=== PATIENT | male | born 1955 | race Caucasian/White ===

== ENCOUNTER → 2016-09-18 | Outpatient (CLI) | payer OTHER | LOC: FIMAGING 08:32 | PROVIDERS: ATTEND Orthopaedic Surgery | DX: M86.271 Subacute osteomyelitis, right ankle and foot (principal) | CPT/HCPCS: 78315; 78805; A9503; A9570 ==

== ENCOUNTER 2018-04-10 10:11 | Inpatient (IN) | payer OTHER ==
[2018-04-10] MEDS ORDERED: ONDANSETRON 4 MG/2 ML VIAL IVP ONE (11:24)
--- NOTE | 2018-04-10 11:27 | EDPHY ---
H & P Stated Complaint: High b/p, N/V Time Seen by Provider: 04/10/18 11:11 HPI/ROS: CHIEF COMPLAINT: Abdominal pain, vomiting HISTORY OF PRESENT ILLNESS: 63-year-old male presents with abdominal pain and vomiting. Onset of moderate generalized abdominal pain 2 days ago. Associated with vomiting and lack of appetite. The pain is 4/10 when supine, increases to 7/10 when upright. Mainly laying in bed for the past 2 days. No oral intake for 2 days. Associated with generalized weakness and urinary frequency without dysuria or hematuria. No dizziness or fever. No prior similar symptoms. No prior abdominal surgery. REVIEW OF SYSTEMS: complete 10 point ROS reviewed and is negative except for the noted elements in the HPI Source: Patient - Personal History Current Tetanus/Diphtheria Vaccine: Yes - Medical/Surgical History Hx Asthma: No Hx Chronic Respiratory Disease: No Hx Diabetes: No Hx Cardiac Disease: No Hx Renal Disease: No Hx Cirrhosis: No Hx Alcoholism: No Other PMH: HTN - Social History Smoking Status: Never smoked Alcohol Use: Occasionally Drug Use: None - Physical Exam Exam: General Appearance: Alert, pleasant Eyes: Pupils equal and round, no conjunctival pallor or injection ENT, Mouth: Mucous membranes moist Neck: Normal inspection Respiratory: Lungs are clear to auscultation Cardiovascular: Regular rate and rhythm Gastrointestinal: Abdomen is soft, diffuse tenderness with guarding, especially in the right lower quadrant and suprapubic area Neurological: A&O, nonfocal, normal gait Skin: Warm and dry Extremities: Normal inspection Psychiatric: Mood and affect normal Constitutional: Initial Vital Signs Temperature (C) 36.6 C 04/10/18 10:28 Heart Rate 98 04/10/18 10:28 Respiratory Rate 18 04/10/18 10:28 Blood Pressure 154/111 H 04/10/18 10:28 O2 Sat (%) 91 L 04/10/18 10:28 O2 Delivery Mode Room Air Allergies/Adverse Reactions: No Known Allergies Allergy (Unverified 04/10/18 10:31) Home Medications: Medication Instructions Recorded Captopril 50 mg PO TID 04/10/18 Herbals/Supplements -Info Only 1 ea PO DAILY 04/10/18 Multivitamins [Multivitamin (*)] 1 each PO DAILY 04/10/18 Naproxen Sodium [Aleve 220 MG (*)] 220 mg PO BID PRN 04/10/18 Omeprazole 20 mg PO DAILY 04/10/18 amLODIPine BESYLATE [Norvasc 10 mg 10 mg PO DAILY 04/10/18 (*)] Medical Decision Making - Diagnostics Imaging Results: Imaging Impressions Abdomen CT 04/10/18 11:24 Impression: 1. Thickening associated with the 3rd-4th portions of the duodenum with surrounding inflammation suggestive of duodenal ulcer /inflammation/infection. Secondary inflammatory process possibly from pancreatitis of the uncinate process is felt to be less likely 2. No CT evidence of appendicitis, abscess or bowel obstruction.. 3. Bilateral nephrolithiasis without obstruction. 4. Degenerative disk disease at L4-L5 with moderate spinal stenosis and neuroforaminal stenoses. Findings discussed with Melissa Briones M.D. at 12:31 hour, 04/10/2018. Abdomen Ultrasound 04/10/18 12:35 Impression: Nonobstructing nephrolithiasis of the right kidney. Otherwise, limited study without acute process by ultrasound. Findings and recommendations discussed with MELISSA BRIONES at 1357 hour, 2017. Imaging: Discussed imaging studies w/ call center assistant Radiologist ED Course/Re-evaluation: This patient presents with abdominal pain and vomiting. Abd exam concerning, given diffuse tenderness with guarding. IV normal saline 2 L, morphine and Zofran IV given. Feels better after IV morphine. Leukocytosis noted. CT scan of the abdomen/pelvis ordered and reveals duodenal ulcer versus pancreatitis. Lipase is only slightly elevated at 350, unclear if pancreatitis is actually the etiology of the discomfort; would expect higher lipase, given length/ severity of sx. Protonix 80 mg IV given for possible duodenal ulcer. A right upper quadrant ultrasound was ordered to evaluate for possible gallstones and is negative. CT scan results discussed with the patient. Denies heavy EtOH. Using NSAIDS frequently. The hospitalist service was consulted for admission. Serial abdominal exam remains unchanged x2. Differential Diagnosis: Differential diagnosis includes though it is not limited to appendicitis, cholecystitis, diverticulitis, pyelonephritis, bowel perforation, small bowel obstruction. - Data Points Laboratory Results: Laboratory Results 04/10/18 11:21 04/10/18 11:21 04/10/18 04/10/18 04/10/18 12:00 11:26 11:21 WBC RBC Hgb POC Hgb 17.7 gm/dL H gm/dL (13.7-17.5) Hct POC Hct 52 % H % (40-51) MCV MCH MCHC RDW Plt Count MPV Neut % (Auto) Lymph % (Auto) [place] % (Auto) Eos % (Auto) Baso % (Auto) Nucleat RBC Rel Count Absolute Neuts (auto) Absolute Lymphs (auto) Absolute Monos (auto) Absolute Eos (auto) Absolute Basos (auto) Absolute Nucleated RBC Immature Gran % Immature Gran # RBC/WBC/PLT Morphology Platelet Estimate PT 13.9 SEC SEC (12.0-15.0) INR 1.05 (0.83-1.16) APTT 28.3 SEC SEC (23.0-38.0) POC Sodium 141 mEq/L mEq/L (135-145) Sodium POC Potassium 3.8 mEq/L mEq/L (3.3-5.0) Potassium POC Chloride 97 mEq/L mEq/L (97-110) Chloride Carbon Dioxide Anion Gap POC BUN 14 mg/dL mg/dL (7-23) BUN Creatinine POC Creatinine 1.0 mg/dL mg/dL (0.7-1.3) Estimated GFR Glucose POC Glucose 104 mg/dL H mg/dL (70-100) Calcium Total Bilirubin Conjugated Bilirubin Unconjugated Bilirubin AST ALT Alkaline Phosphatase Total Protein Albumin Lipase H. pylori IgG Antibody NEGATIVE (NEG) 04/10/18 04/10/18 11:21 11:21 WBC 24.84 10^3/uL H 10^3/uL (3.80-9.50) RBC 5.92 10^6/uL 10^6/uL (4.40-6.38) Hgb 16.9 g/dL g/dL (13.7-17.5) POC Hgb Hct 48.8 % % (40.0-51.0) POC Hct MCV 82.4 fL fL (81.5-99.8) MCH 28.5 pg pg (27.9-34.1) MCHC 34.6 g/dL g/dL (32.4-36.7) RDW 13.1 % % (11.5-15.2) Plt Count 246 10^3/uL 10^3/uL (150-400) MPV 9.9 fL fL (8.7-11.7) Neut % (Auto) 86.5 % H % (39.3-74.2) Lymph % (Auto) 5.9 % L % (15.0-45.0) [place] % (Auto) 6.7 % % (4.5-13.0) Eos % (Auto) 0.1 % L % (0.6-7.6) Baso % (Auto) 0.3 % % (0.3-1.7) Nucleat RBC Rel Count 0.0 % % (0.0-0.2) Absolute Neuts (auto) 21.49 10^3/uL H 10^3/uL (1.70-6.50) Absolute Lymphs (auto) 1.47 10^3/uL 10^3/uL (1.00-3.00) Absolute Monos (auto) 1.66 10^3/uL H 10^3/uL (0.30-0.80) Absolute Eos (auto) 0.02 10^3/uL L 10^3/uL (0.03-0.40) Absolute Basos (auto) 0.07 10^3/uL 10^3/uL (0.02-0.10) Absolute Nucleated RBC 0.00 10^3/uL 10^3/uL (0-0.01) Immature Gran % 0.5 % % (0.0-1.1) Immature Gran # 0.12 10^3/uL H 10^3/uL (0.00-0.10) RBC/WBC/PLT Morphology TNP Platelet Estimate TNP PT INR APTT POC Sodium Sodium 138 mEq/L mEq/L (135-145) POC Potassium Potassium 4.1 mEq/L mEq/L (3.3-5.0) POC Chloride Chloride 101 mEq/L mEq/L (97-110) Carbon Dioxide 25 mEq/l mEq/l (22-31) Anion Gap 12 mEq/L mEq/L (6-14) POC BUN BUN 14 mg/dL mg/dL (7-23) Creatinine 1.0 mg/dL mg/dL (0.7-1.3) POC Creatinine Estimated GFR > 60 Glucose 98 mg/dL mg/dL (70-100) POC Glucose Calcium 9.6 mg/dL mg/dL (8.5-10.4) Total Bilirubin 1.5 mg/dL H mg/dL (0.1-1.4) Conjugated Bilirubin 0.4 mg/dL mg/dL (0.0-0.5) Unconjugated Bilirubin 1.1 mg/dL mg/dL (0.0-1.1) AST 32 IU/L IU/L (17-59) ALT 27 IU/L IU/L (21-72) Alkaline Phosphatase 116 IU/L IU/L (38-126) Total Protein 7.8 g/dL g/dL (6.3-8.2) Albumin 4.4 g/dL g/dL (3.5-5.0) Lipase 350 IU/L H IU/L (23-300) H. pylori IgG Antibody Medications Given: Hydralazine HCl (Apresoline) 5 mg IVP Q6HRS PRN PRN Reason: SBP Greater Than 160 Stop: 10/07/18 15:13 Last Admin: 04/10/18 16:10 Dose: 5 mg Potassium Chloride/Sodium Chloride (Ns W/ 20 Kcl/L) 1,000 mls @ 100 mls/hr IV CONT DAVID Stop: 10/07/18 15:14 Last Admin: 04/10/18 18:00 Dose: 1,000 mls Lisinopril (Zestril) 10 mg PO DAILY [facility] Stop: 10/07/18 15:29 Last Admin: 04/10/18 16:06 Dose: 10 mg Nystatin (Mycostatin Oral Liquid) 500,000 unit PO QID DAVID PRN Reason: Protocol Stop: 05/10/18 15:59 Last Admin: 04/10/18 16:06 Dose: 500,000 unit Oxycodone HCl (Oxycodone Ir) 5 - 10 mg PO Q3HRS PRN PRN Reason: Pain, Severe Able to Take PO Stop: 04/20/18 12:57 Last Admin: 04/10/18 14:51 Dose: 10 mg Discontinued Medications Morphine Sulfate (Morphine) 6 mg IVP EDNOW ONE Stop: 04/10/18 11:25 Last Admin: 04/10/18 11:39 Dose: 4 mg Ondansetron HCl (Zofran) 4 mg IVP EDNOW ONE Stop: 04/10/18 11:25 Last Admin: 04/10/18 11:35 Dose: 4 mg Pantoprazole Sodium (Protonix) 80 mg IVP EDNOW ONE Stop: 04/10/18 12:35 Last Admin: 04/10/18 12:51 Dose: 80 mg Point of Care Test Results: Chemistry 04/10/18 11:26 POC Sodium 141 mEq/L mEq/L (135-145) POC Potassium 3.8 mEq/L mEq/L (3.3-5.0) POC Chloride 97 mEq/L mEq/L (97-110) POC BUN 14 mg/dL mg/dL (7-23) POC Creatinine 1.0 mg/dL mg/dL (0.7-1.3) POC Glucose 104 mg/dL H mg/dL (70-100) ISTAT H&H 04/10/18 11:26 POC Hgb 17.7 gm/dL H gm/dL (13.7-17.5) POC Hct 52 % H % (40-51) Departure - Departure Disposition: [facility] Inpatient Acute Condition: Fair
[2018-04-10] MEDS ORDERED: IOPAMIDOL (ISOVUE-300) 100 ML BTL ONE (11:35)
[2018-04-10 11:36] LABS: PLATELET COUNT 246 10^3/uL (150-400)
[2018-04-10] MEDS ORDERED: PANTOPRAZOLE SODIUM 40 MG VIAL IVP ONE (12:34)
[2018-04-10] MEDS ORDERED: HYDROmorphONE/DILAUDID 1 MG/ML INJ IVP PRN (12:58)
[2018-04-10] MEDS ORDERED: ONDANSETRON DISINTEGRATING 4 MG TAB PO PRN (12:58)
[2018-04-10] MEDS ORDERED: ACETAMINOPHEN 325 MG TAB PO PRN (12:58)
[2018-04-10] MEDS ORDERED: ONDANSETRON 4 MG/2 ML VIAL IVP PRN (12:58)
[2018-04-10] MEDS ORDERED: NS 1,000 ML IV SCH (13:00)
[2018-04-10 13:47] LABS: INR 1.05 (0.83-1.16); PROTIME(PATIENT) 13.9 SEC (12.0-15.0)
--- NOTE | 2018-04-10 14:21 | PDGENHP ---
<Asia Chu - Last Filed: 04/10/18 15:15> History and Physical - Chief Complaint "My stomach hurts" - History of Present Illness 63 y/o male presents with abdominal pain and nausea. He reportedly present to his PCP office on Saturday d/t elevated blood pressures and was instructed to increase his Captopril to TID. At midnight that same day , he woke up and actively vomited three times. Denies hematemesis. Abdominal pains ensued and describes it as diffuse pain. He has never experienced this type of pain. Pain is 3/10 lying supine, 6-7/10 while sitting up. Endorses current headache. No vision changes. No appetite, decrease PO intake, denies chest pains, SOB, fevers, chills. Denies dysuria or diarrhea. Last BM was Saturday and was formed and brown. Upon assessment, normoactive bowel sounds. Guarding more so LUQ/LLE. No rebound tenderness. Positive Rovsing's sign x 1 but cannot replicate. Once again, diffuse abdominal pain and tenderness. He reports chronic use of NSAIDs (Naproxen 220 mg 2-3 tablets QD). Past Medical/Surgical History 1. HTN 2. Tinnitus 3. Arthritis 4. Hoffman's Esophagus 5. HLD 6. Nephrolithiasis 7. Carpal Tunnel Syndrome 8. Spondylolisthesis 9. Hernia surgery 10. Right ankle repair, subsequently osteomyelitis d/t hardware in September 2016 11. 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 Lives independently in [place], has a daughter who lives in [place] 3. Denies tobacco, illicit drug use, or alcohol 4. Typical diet is soda pop and sandwiches (Pakistani meat) History Information - Allergies/Home Medication List Allergies/Adverse Reactions: No Known Allergies Allergy (Unverified 04/10/18 10:31) Home Medications: Captopril 50 mg PO TID 04/10/18 [Last Taken 04/10/18] Herbals/Supplements -Info Only 1 ea PO DAILY 04/10/18 [Last Taken Unknown] Multivitamins [Multivitamin (*)] 1 each PO DAILY 04/10/18 [Last Taken 04/10/18] Naproxen Sodium [Aleve 220 MG (*)] 220 mg PO BID PRN 04/10/18 [Last Taken Unknown] Omeprazole 20 mg PO DAILY 04/10/18 [Last Taken 04/10/18] amLODIPine BESYLATE [Norvasc 10 mg (*)] 10 mg PO DAILY 04/10/18 [Last Taken ] I have personally reviewed and updated: family history, medical history, social history, surgical history Past Medical History: See HPI List - Surgical History Additional surgical history: See HPI List - Family History Positive for: cancer Additional family history: Mother last year - Social History Smoking Status: Never smoked Alcohol Use: Sober Drug Use: None Review of Systems Review of Systems: ROS: 10pt was reviewed & negative except for what was stated in HPI & below Constitutional: Reports: malaise EENMT: Reports: no symptoms Cardiac: Reports: no symptoms Respiratory: Reports: no symptoms Gastrointestinal: Reports: vomitting, abdominal pain, nausea Genitourinary: Reports: no symptoms Muscolosketal: Reports: no symptoms Skin: Reports: no symptoms Neurological: Reports: headache Hematologic/Lymphatic: Reports: no symptoms Immunologic/Allergy: Reports: no symptoms Physical Exam Physical Exam: Temp Pulse Resp BP Pulse Ox 36.7 C 85 18 162/101 H 98 04/10/18 11:43 04/10/18 13:47 04/10/18 13:47 04/10/18 13:47 04/10/18 13:47 O2 (L/minute) 2 Constitutional: uncomfortable Eyes: PERRL, anicteric sclera, EOMI Ears, Nose, Mouth, Throat: hearing normal, ears appear normal, oral thrush Cardiovascular: regular rate and rhythym, no murmur, rub, or gallop, No edema Peripheral Pulses: 2+: dorsalis-pedis (R) (Radial 2+), dorsalis-pedis (L) ( Radial 2+) Respiratory: no respiratory distress, no rales or rhonchi, clear to auscultation Gastrointestinal: normoactive bowel sounds, tenderness, guarding, other (No CVA tenderness) Genitourinary: no bladder fullness, no bladder tenderness Skin: warm, normal color, no rashes or abrasions, no fluctuance, no induration, No mottled Musculoskeletal: full muscle strength, no muscle tenderness, normal joint ROM, no joint effusions Neurologic: AAOx3, sensation intact bilaterally, CN II-XII Intact Psychiatric: interacting appropriately, not anxious, not encephalopathic, thought process linear Lymph, Heme, Immunologic: no cervical LAD, no supraclavicular LAD Lab Data & Imaging Review 04/10/18 11:21 04/10/18 11:21 WBC 24.84 10^3/uL (3.80-9.50) H 04/10/18 11:21 RBC 5.92 10^6/uL (4.40-6.38) 04/10/18 11:21 Hgb 16.9 g/dL (13.7-17.5) 04/10/18 11:21 POC Hgb 17.7 gm/dL (13.7-17.5) H 04/10/18 11:26 Hct 48.8 % (40.0-51.0) 04/10/18 11:21 POC Hct 52 % (40-51) H 04/10/18 11:26 MCV 82.4 fL (81.5-99.8) 04/10/18 11:21 MCH 28.5 pg (27.9-34.1) 04/10/18 11:21 MCHC 34.6 g/dL (32.4-36.7) 04/10/18 11: RDW 13.1 % (11.5-15.2) 04/10/18 11:21 Plt Count 246 10^3/uL (150-400) 04/10/18 11:21 MPV 9.9 fL (8.7-11.7) 04/10/18 11:21 Neut % (Auto) 86.5 % (39.3-74.2) H 04/10/18 11:21 Lymph % (Auto) 5.9 % (15.0-45.0) L 04/10/18 11:21 [place] % (Auto) 6.7 % (4.5-13.0) 04/10/18 11:21 Eos % (Auto) 0.1 % (0.6-7.6) L 04/10/18 11:21 Baso % (Auto) 0.3 % (0.3-1.7) 04/10/18 11:21 Nucleat RBC Rel Count 0.0 % (0.0-0.2) 04/10/18 11:21 Absolute Neuts (auto) 21.49 10^3/uL (1.70-6.50) H 04/10/18 11:21 Absolute Lymphs (auto) 1.47 10^3/uL (1.00-3.00) 04/10/18 11:21 Absolute Monos (auto) 1.66 10^3/uL (0.30-0.80) H 04/10/18 11:21 Absolute Eos (auto) 0.02 10^3/uL (0.03-0.40) L 04/10/18 11:21 Absolute Basos (auto) 0.07 10^3/uL (0.02-0.10) 04/10/18 11:21 Absolute Nucleated RBC 0.00 10^3/uL (0-0.01) 04/10/18 11:21 Immature Gran % 0.5 % (0.0-1.1) 04/10/18 11:21 Immature Gran # 0.12 10^3/uL (0.00-0.10) H 04/10/18 11:21 RBC/WBC/PLT Morphology TNP 04/10/18 11:21 Platelet Estimate TNP 04/10/18 11:21 PT 13.9 SEC (12.0-15.0) 04/10/18 12:00 INR 1.05 (0.83-1.16) 04/10/18 12:00 APTT 28.3 SEC (23.0-38.0) 04/10/18 12:00 VBG Lactic Acid 1.2 mmol/L (0.7-2.1) 04/10/18 13:00 POC Sodium 141 mEq/L (135-145) 04/10/18 11:26 Sodium 138 mEq/L (135-145) 04/10/18 11:21 POC Potassium 3.8 mEq/L (3.3-5.0) 04/10/18 11:26 Potassium 4.1 mEq/L (3.3-5.0) 04/10/18 11:21 POC Chloride 97 mEq/L (97-110) 04/10/18 11:26 Chloride 101 mEq/L (97-110) 04/10/18 11:21 Carbon Dioxide 25 mEq/l (22-31) 04/10/18 11:21 Anion Gap 12 mEq/L (6-14) 04/10/18 11:21 POC BUN 14 mg/dL (7-23) 04/10/18 11:26 BUN 14 mg/dL (7-23) 04/10/18 11:21 Creatinine 1.0 mg/dL (0.7-1.3) 04/10/18 11:21 POC Creatinine 1.0 mg/dL (0.7-1.3) 04/10/18 11:26 Estimated GFR > 60 04/10/18 11:21 Glucose 98 mg/dL (70-100) 04/10/18 11:21 POC Glucose 104 mg/dL (70-100) H 04/10/18 11:26 Calcium 9.6 mg/dL (8.5-10.4) 04/10/18 11:21 Total Bilirubin 1.5 mg/dL (0.1-1.4) H 04/10/18 11:21 Conjugated Bilirubin 0.4 mg/dL (0.0-0.5) 04/10/18 11:21 Unconjugated Bilirubin 1.1 mg/dL (0.0-1.1) 04/10/18 11:21 AST 32 IU/L (17-59) 04/10/18 11:21 ALT 27 IU/L (21-72) 04/10/18 11:21 Alkaline Phosphatase 116 IU/L (38-126) 04/10/18 11:21 Total Protein 7.8 g/dL (6.3-8.2) 04/10/18 11:21 Albumin 4.4 g/dL (3.5-5.0) 04/10/18 11:21 Lipase 350 IU/L (23-300) H 04/10/18 11:21 Urine Color PALE YELLOW 04/10/18 12:50 Urine Appearance CLEAR 04/10/18 12:50 Urine pH 8.0 (5.0-7.5) H 04/10/18 12:50 Ur Specific [place] > 1.035 (1.002-1.030) H 04/10/18 12:50 Urine Protein NEGATIVE (NEGATIVE) 04/10/18 12:50 Urine Ketones NEGATIVE (NEGATIVE) 04/10/18 12:50 Urine Blood NEGATIVE (NEGATIVE) 04/10/18 12:50 Urine Nitrate NEGATIVE (NEGATIVE) 04/10/18 12:50 Urine Bilirubin NEGATIVE (NEGATIVE) 04/10/18 12:50 Urine Urobilinogen NEGATIVE EU (0.2-1.0) 04/10/18 12:50 Ur Leukocyte Esterase NEGATIVE (NEGATIVE) 04/10/18 12:50 Urine Glucose NEGATIVE (NEGATIVE) 04/10/18 12:50 Assessment & Plan Plan: 63 y/o male presents with diffuse abdominal pain and nausea. Active emesis was 2 days ago but he has not regained his appetite and has poor PO intake. CT imaging reveals possible duodenal ulcer either infectious or inflammatory in nature versus possible pancreatitis. Lipase mildly elevated 350. He also has bilateral nephrolithiasis with no obstruction. Imaging does not indicate appendicitis. Possible gastroenteritis. 1. Abdominal pain -H.Pylori Antibody and breath test pending -Educated pt on minimizing NSAID use to reduce damage to GI/renal -PPI -Avoid NSAIDs -Clears diet, ADAT -Limited US to review gallbladder - results did not indicate cholelithiasis 2. Nausea -Anti-emetics PRN -IVF 3. Thrush -Nystatin 4. HTN -Continue home medications of amlodipine and captopril -Hydralazine PRN sbp >160 5. SIRS criteria met: Tachycardic and leukocytosis -Blood cultures pending -Lactate level 1.2 6. Hypersthenuria: suspect it is dehydration from emesis and poor PO intake -IVF Diet: Clears, ADAT VTE ppx: Lovenox, SCDs Code: DNR Dispo: Admit to inpatient <Olga Lidia Vinson - Last Filed: 04/10/18 18:53> History and Physical - History of Present Illness History of Present Illness Saw and examined patient. Reviewed chart. Discussed with Nelly Chu APN. 63yo M w/ abd pain, nausea, constipation - Ddx duodenitis (viral), duodenal ulcer. IVF, prn analgesics, clear liquid diet. Recheck in AM. Review of Systems Review of Systems: Physical Exam Physical Exam: Temp Pulse Resp BP Pulse Ox 37.4 C 96 16 149/85 H 92 04/10/18 14:11 04/10/18 14:11 04/10/18 14:11 04/10/18 18:05 04/10/18 14:11 O2 (L/minute) 2 Lab Data & Imaging Review 04/10/18 11:21 04/10/18 11:21 WBC 24.84 10^3/uL (3.80-9.50) H 04/10/18 11:21 RBC 5.92 10^6/uL (4.40-6.38) 04/10/18 11:21 Hgb 16.9 g/dL (13.7-17.5) 04/10/18 11:21 POC Hgb 17.7 gm/dL (13.7-17.5) H 04/10/18 11:26 Hct 48.8 % (40.0-51.0) 04/10/18 11:21 POC Hct 52 % (40-51) H 04/10/18 11:26 MCV 82.4 fL (81.5-99.8) 04/10/18 11:21 MCH 28.5 pg (27.9-34.1) 04/10/18 11:21 MCHC 34.6 g/dL (32.4-36.7) 04/10/18 11:21 RDW 13.1 % (11.5-15.2) 04/10/18 11:21 Plt Count 246 10^3/uL (150-400) 04/10/18 11:21 MPV 9.9 fL (8.7-11.7) 04/10/18 11:21 Neut % (Auto) 86.5 % (39.3-74.2) H 04/10/18 11:21 Lymph % (Auto) 5.9 % (15.0-45.0) L 04/10/18 11:21 [place] % (Auto) 6.7 % (4.5-13.0) 04/10/18 11:21 Eos % (Auto) 0.1 % (0.6-7.6) L 04/10/18 11:21 Baso % (Auto) 0.3 % (0.3-1.7) 04/10/18 11:21 Nucleat RBC Rel Count 0.0 % (0.0-0.2) 04/10/18 11:21 Absolute Neuts (auto) 21.49 10^3/uL (1.70-6.50) H 04/10/18 11:21 Absolute Lymphs (auto) 1.47 10^3/uL (1.00-3.00) 04/10/18 11:21 Absolute Monos (auto) 1.66 10^3/uL (0.30-0.80) H 04/10/18 11:21 Absolute Eos (auto) 0.02 10^3/uL (0.03-0.40) L 04/10/18 11:21 Absolute Basos (auto) 0.07 10^3/uL (0.02-0.10) 04/10/18 11:21 Absolute Nucleated RBC 0.00 10^3/uL (0-0.01) 04/10/18 11:21 Immature Gran % 0.5 % (0.0-1.1) 04/10/18 11:21 Immature Gran # 0.12 10^3/uL (0.00-0.10) H 04/10/18 11:21 RBC/WBC/PLT Morphology TNP 04/10/18 11:21 Platelet Estimate TNP 04/10/18 11:21 PT 13.9 SEC (12.0-15.0) 04/10/18 12:00 INR 1.05 (0.83-1.16) 04/10/18 12:00 APTT 28.3 SEC (23.0-38.0) 04/10/18 12:00 VBG Lactic Acid 1.2 mmol/L (0.7-2.1) 04/10/18 13:00 POC Sodium 141 mEq/L (135-145) 04/10/18 11:26 Sodium 138 mEq/L (135-145) 04/10/18 11:21 POC Potassium 3.8 mEq/L (3.3-5.0) 04/10/18 11:26 Potassium 4.1 mEq/L (3.3-5.0) 04/10/18 11:21 POC Chloride 97 mEq/L (97-110) 04/10/18 11:26 Chloride 101 mEq/L (97-110) 04/10/18 11:21 Carbon Dioxide 25 mEq/l (22-31) 04/10/18 11:21 Anion Gap 12 mEq/L (6-14) 04/10/18 11:21 POC BUN 14 mg/dL (7-23) 04/10/18 11:26 BUN 14 mg/dL (7-23) 04/10/18 11:21 Creatinine 1.0 mg/dL (0.7-1.3) 04/10/18 11:21 POC Creatinine 1.0 mg/dL (0.7-1.3) 04/10/18 11:26 Estimated GFR > 60 04/10/18 11:21 Glucose 98 mg/dL (70-100) 04/10/18 11:21 POC Glucose 104 mg/dL (70-100) H 04/10/18 11:26 Calcium 9.6 mg/dL (8.5-10.4) 04/10/18 11:21 Total Bilirubin 1.5 mg/dL (0.1-1.4) H 04/10/18 11:21 Conjugated Bilirubin 0.4 mg/dL (0.0-0.5) 04/10/18 11:21 Unconjugated Bilirubin 1.1 mg/dL (0.0-1.1) 04/10/18 11:21 AST 32 IU/L (17-59) 04/10/18 11:21 ALT 27 IU/L (21-72) 04/10/18 11:21 Alkaline Phosphatase 116 IU/L (38-126) 04/10/18 11:21 Total Protein 7.8 g/dL (6.3-8.2) 04/10/18 11:21 Albumin 4.4 g/dL (3.5-5.0) 04/10/18 11:21 Lipase 350 IU/L (23-300) H 04/10/18 11:21 Urine Color PALE YELLOW 04/10/18 12:50 Urine Appearance CLEAR 04/10/18 12:50 Urine pH 8.0 (5.0-7.5) H 04/10/18 12:50 Ur Specific [place] > 1.035 (1.002-1.030) H 04/10/18 12:50 Urine Protein NEGATIVE (NEGATIVE) 04/10/18 12:50 Urine Ketones NEGATIVE (NEGATIVE) 04/10/18 12:50 Urine Blood NEGATIVE (NEGATIVE) 04/10/18 12:50 Urine Nitrate NEGATIVE (NEGATIVE) 04/10/18 12:50 Urine Bilirubin NEGATIVE (NEGATIVE) 04/10/18 12:50 Urine Urobilinogen NEGATIVE EU (0.2-1.0) 04/10/18 12:50 Ur Leukocyte Esterase NEGATIVE (NEGATIVE) 04/10/18 12:50 Urine Glucose NEGATIVE (NEGATIVE) 04/10/18 12:50 H. pylori IgG Antibody NEGATIVE (NEG) 04/10/18 11:21
[2018-04-10] MEDS: oxyCODONE IR 5 MG TAB PO PRN ×2 (14:51→22:42)
[2018-04-10] MEDS ORDERED: POLYETHYLENE GLYCOL 3350 17 GM PKT PO PRN (15:12)
[2018-04-10] MEDS ORDERED: BISACODYL 10 MG SUPP PR PRN (15:12)
[2018-04-10] MEDS ORDERED: LACTULOSE 20 GM/30 ML UDCUP PO PRN (15:12)
[2018-04-10] MEDS ORDERED: MAGNESIUM HYDROXIDE 30 ML UDCUP PO PRN (15:12)
--- NOTE | 2018-04-10 15:26 | PDMN ---
Medical Necessity Medical necessity: M05 abd pain undg: abd pain with N/V, tenderness, req. pt to be NPO for further monitoring and eval. also with SIRS, tachycardia and leukocytosis, blood cultures pend., HTN, poss duodenal ulcer either infectious or inflammatory vs. pancreatitis. Lipase mildly elevated, also with bilat. nephrolithiasis without obstruction, further monitoring and eval needed. anticipate > 2MN>
[2018-04-10] MEDS: NYSTATIN SUSP 500000 UNIT/5 ML UD LIQ PO SCH ×2 (16:06→20:27)
[2018-04-10] MEDS: LISINOPRIL 10 MG TAB PO SCH (16:06)
[2018-04-10] MEDS: hydrALAZINE 20 MG/ML VIAL IVP PRN (16:10)
[2018-04-10] MEDS: NS W/ 20 KCl/L 1,000 ML IV SCH (18:00)
[2018-04-10] MEDS: SENNOSIDES/DOCUSATE SODIUM TAB PO SCH (20:26)
[2018-04-10] MEDS: ENOXAPARIN 40 MG/0.4 ML SYR SC SCH (20:26)
[2018-04-10] MEDS: PANTOPRAZOLE SODIUM 40 MG VIAL IVP SCH (20:27)
[2018-04-11] MEDS: NS W/ 20 KCl/L 1,000 ML IV SCH (04:19)
[2018-04-11 05:43] LABS: PLATELET COUNT 225 10^3/uL (150-400)
[2018-04-11] MEDS: NYSTATIN SUSP 500000 UNIT/5 ML UD LIQ PO SCH (06:03)
[2018-04-11] MEDS: LISINOPRIL 10 MG TAB PO SCH (09:25)
[2018-04-11] MEDS: PANTOPRAZOLE SODIUM 40 MG VIAL IVP SCH (09:25)
[2018-04-11] MEDS: hydrALAZINE 20 MG/ML VIAL IVP PRN (09:25)
[2018-04-11] MEDS: SENNOSIDES/DOCUSATE SODIUM TAB PO SCH (09:25)
[2018-04-11] MEDS: ENOXAPARIN 40 MG/0.4 ML SYR SC SCH (09:27)
[2018-04-11 12:06] VITALS: BP 167/86
--- NOTE | 2018-04-11 12:51 | ASMTCMCOM ---
CM Note CM Note Notes: Reviewed chart, pt admitted for abdominal pain. 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 DC Plan: Independent Date Signed: 04/11/2018 12:51 PM Electronically Signed By:Beverly Alexander RN
--- NOTE | 2018-04-11 15:16 | PDDCSUM ---
Discharge Summary Discharge Summary: Date of Admission: April 10, 2018 Date of Discharge: April 11, 2018 Discharge Diagnoses: Acute duodenal ulcer Ddx etiology - likely NSAID induced. Consider H. Pylori. Leukocytosis, improved Constipation Acute abd pain, improved Nausea, resolved Dehydration, resolved Nonobstructing nephrolithiasis L4-L5 Degenerative disk disease/spondylosis Admission Diagnoses: Abdominal pain Nausea Geographic tongue HTN Tachycardia and leukocytosis Hypersthenuria Consultants: None. Hospital Course: The patient is a 63-year-old male with past medical history of hypertension who was admitted for abdominal pain and nausea for several days. He denied eating any abnormal or questionable foods prior to this starting. He admitted to using naproxen on a regular basis without any problems. He had been taking over -the-counter doses of omeprazole for acid reflux under basis as well. CT scan of the abdomen revealed duodenal ulcer versus duodenitis and possible involvement of the uncinate process of the pancreas. Patient was put on Protonix twice daily, given IV fluids, given IV antiemetics, and observed overnight. The next day the patient was feeling better and wanted to go home. He tolerated oral diet and was passing gas, although he continued to be constipated. His pain diminished from severity of 10/10 to 2/10. Patient was given a prescription for oxycodone and told not to take naproxen or other NSAIDs until he is cleared by his regular physician. He was recommended to use over the counter constipation medication such as Colace. At the time of discharge, H pylori breath test result was pending and will need to be discussed with PCP at follow-up visit. He was told he may consider getting repeat imaging in the future to ensure resolution of intra-abdominal inflammatory process and evaluate pancreas further. Blood culture revealed a coagulase negative staphylococcus, which was considered a contaminant. 2nd blood culture was pending a the time of discharge. Patient may follow up with PCP regarding the final results of these tests. Physical Exam: Gen - alert, oriented, in NAD. Abd - nondistended. MSK: ambulating. Condition: Stable Discharged to: Home Pertinent tests/labs/imaging: CT abdomen w/ contrast- 1. Thickening associated with the 3rd-4th portions of the duodenum with surrounding inflammation suggestive of duodenal ulcer /inflammation/infection. Secondary inflammatory process possibly from pancreatitis of the uncinate process is felt to be less likely 2. No CT evidence of appendicitis, abscess or bowel obstruction. 3. Bilateral nephrolithiasis without obstruction. 4. Degenerative disk disease at L4-L5 with moderate spinal stenosis and neuroforaminal stenoses. US abd - Nonobstructing nephrolithiasis of the right kidney. Pancreas obscured by bowel gas. WBC - 25 on admission, 19 on discharge. Medications: Please see med rec form. Rx given: oxycodone 5mg tabs #56. Protonix 40mg caps #60. Continue stool softeners and/or laxative for constipation. Special instructions: Avoid NSAIDs. Avoid aspirin. Follow up with PCP for pending test results and further workup. Follow up: PCP in 1 week. GI in 2 weeks.
== END 2018-04-11 15:38 | disposition home or self-care (01) | DRG 384 ==
LOC: F3E 14:01
PROVIDERS: ADMIT Internal Medicine; ATTEND Internal Medicine
DX: K26.3 Acute duodenal ulcer without hemorrhage or perforation (principal); T39.015A Adverse effect of aspirin, initial encounter; N20.0 Calculus of kidney; E86.0 Dehydration; M51.36 Other intervertebral disc degeneration, lumbar region; B37.0 Candidal stomatitis; K22.70 Barrett's esophagus without dysplasia; I10 Essential (primary) hypertension; R78.81 Bacteremia
CPT/HCPCS: 82435-PO; 82565-PO; 82947-PO; 84132-PO; 84295-PO; 84520-PO; 85014-PO; 96374; J0360; J1170; J1650; J2270; J2405; Q9967

== ENCOUNTER 2018-04-12 14:43 | Inpatient (IN) | payer OTHER ==
[2018-04-12] MEDS ORDERED: ACETAMINOPHEN 325 MG TAB PO PRN (15:25)
[2018-04-12] MEDS ORDERED: OXYCODONE/APAP 5/325 TAB PO PRN (15:25)
[2018-04-12] MEDS ORDERED: ONDANSETRON 4 MG/2 ML VIAL IVP PRN (15:25)
[2018-04-12] MEDS ORDERED: ONDANSETRON DISINTEGRATING 4 MG TAB PO PRN (15:25)
--- NOTE | 2018-04-12 16:03 | PDGENHP ---
History and Physical History and Physical: Chief complaint: bacteremia. History of present illness: The patient is a 63yo M who returns to the hospital upon recommendation for treatment of staphylococcus bacteremia. 2 days ago, he presented to the ED with severe abdominal pain, nausea, and malaise. He was found to have duodenitis/duodenal ulcer. Because he had SIRS criteria, blood cultures were drawn in the ED. Patient was treated with IV Protonix and given oxycodone prn pain. He greatly improved and his pain diminished from 10/10 severity to 2/10 severity and he wanted to go home the next day. At time of discharge, 1 of 2 blood cultures was reported to be coagulase negative staph, which was thought to be a skin contaminant. Following discharge, it was noted that the 2nd set of blood cultures also came back positive for staph. The patient was recommended to return to the hospital to get repeat blood cultures, start IV antibiotics, and commence workup for bacteremia source. He returned to the hospital without any new complaints. He still has a 2/10 severity ache in the abdomen. He is still constipated. He admits to having chronic joint aches and pains (low back, right ankle) but has stopped using naproxen and is now taking oxycodone. He denies any cuts, boils, pimples, wounds , or other possible sources of skin bacteria to enter his bloodstream. He does have some chronic small fissures from dry skin on his fingertips, but they have not been bleeding. He has hardware in his R ankle but his ankle has not been painful, erythematous, or swollen. He admitted that 2 yrs ago he was concerned about her Past medical history: Hypertension, duodenitis w/ ulcer, tinnitus, arthritis, Hoffman's esophagus, hyperlipidemia, nephrolithiasis, carpal tunnel syndrome, thoracic outlet syndrome, spondylolisthesis, necrotizing fasciitis 14 years ago (resulted in veins being hard to stick). Past surgical history: hernia surgery, right ankle repair. Medications: oxycodone 5-10mg po q6h prn pain. Protonix 40mg po BID. Allergies: NKA. 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 Lives alone in [place]. Denies tobacco, illicit drug use, or alcohol. Typical diet is soda pop and sandwiches (Tajik meat). Family history: noncontributory. Review of systems: 10 point review of systems was conducted and is negative except per HPI. Physical exam: Vitals: Reviewed General: The patient is an obese male who is A&Ox3 and in no acute distress. HEENT: normocephalic, extraocular movements intact, conjunctivae clear. Nares and oral mucosa pink and moist. Tongue no longer has white plaque on it. Neck: trachea midline, no visible masses, no external lesions. CV: +S1/S2, reg rate and rhythm. No murmurs/rubs/gallops. Resp: unlabored breathing, lungs clear to auscultation w/o rales, rhonchi, or wheezing. Abd: soft and nondistended, bowel sounds present. Nontender to palpation throughout. Musculoskeletal: Normal gait. Noted old surgical scar R ankle/foot -- ankle is nontender. Neuro: cranial nerves II XII grossly intact. Intact gross motor and sensory function. Psych: appropriate mood/affect. Skin: No rash or ecchymoses. +mild pallor. : no suprapubic tenderness or CVA tenderness. Heme/lymph: No peripheral edema. Labs: pending today. Micro: Staph hominis in both aerobic/anaerobic sets of blood Cx. WBC - 25K on 04/10, 19K on 04/11. Other Data: CT abdomen w/ contrast- 1. Thickening associated with the 3rd-4th portions of the duodenum with surrounding inflammation suggestive of duodenal ulcer /inflammation/infection. Secondary inflammatory process possibly from pancreatitis of the uncinate process is felt to be less likely 2. No CT evidence of appendicitis, abscess or bowel obstruction. 3. Bilateral nephrolithiasis without obstruction. 4. Degenerative disk disease at L4-L5 with moderate spinal stenosis and neuroforaminal stenoses. US abd - Nonobstructing nephrolithiasis of the right kidney. Pancreas obscured by bowel gas. Impression and plan: Bacteremia 2/2 staph hominis -unclear source. Possibly still from contaminant in original blood draws. Duodenitis w/ ulcer HTN H/o Hoffman's esophagitis H/o R ankle ORIF Nephrolithiasis H/o necrotizing fasciitis -repeat blood Cx. Emphasized that the Cx should be taken from 2 different sites about 25 minutes apart. -I have discussed case w/ ID - Dr. Calhoun who recommends this plan for bacteremia. -Start IV vancomycin. -Continue home meds. Additional bowel protocol, prn HTN medication. -Reg diet. -VTE ppx - SCDs. Ambulating. -Code status - DNR. -Dispo: med surg, inpatient for IV antibiotics and it takes days for blood cultures to complete.
[2018-04-12] MEDS ORDERED: LACTULOSE 20 GM/30 ML UDCUP PO PRN (16:14)
[2018-04-12] MEDS ORDERED: BISACODYL 10 MG SUPP PR PRN (16:14)
[2018-04-12] MEDS ORDERED: METOPROLOL TARTRATE 5 MG/5 ML INJ IVP PRN (16:33)
[2018-04-12] MEDS: VANCOMYCIN 1.5 GM in D5W 250 ML IV SCH (17:36)
[2018-04-12] MEDS ORDERED: SENNOSIDES/DOCUSATE SODIUM TAB PO SCH (21:00)
[2018-04-12] MEDS ORDERED: PANTOPRAZOLE SODIUM 40 MG TAB PO SCH (21:00)
[2018-04-13] MEDS: VANCOMYCIN 1.5 GM in D5W 250 ML IV SCH (05:01)
[2018-04-13 05:28] LABS: PLATELET COUNT 253 10^3/uL (150-400)
[2018-04-13] MEDS ORDERED: Herbals/Supplements -Info Only PO SCH (09:00)
[2018-04-13] MEDS: LISINOPRIL 20 MG TAB PO SCH ×3 (09:46→22:22)
[2018-04-13] MEDS: MULTIVITAMINS 1 EACH TAB PO SCH (09:50)
[2018-04-13] MEDS: PANTOPRAZOLE SODIUM 40 MG TAB PO SCH ×2 (09:50→19:56)
[2018-04-13] MEDS: SENNOSIDES/DOCUSATE SODIUM TAB PO SCH ×2 (09:51→19:56)
[2018-04-13] MEDS: POLYETHYLENE GLYCOL 3350 17 GM PKT PO PRN (09:57)
--- NOTE | 2018-04-13 12:00 | ECHO ---
[email or web address] [address] [address] Main: [phone] Fax: Transthoracic Echocardiogram Name: CHICO WHARTON MR#: [id number] Study Date: 04/13/2018 Study Time: 09:00 AM Date of : 1955 Age: 63 year(s) Height: 170.2 cm (67 in.) Weight: 87.09 kg (192 lb.) BSA: 1.99 m2 Gender: Male Examination: Echo Indication: Staph bacteremia/R/O valvular vegetations Image Quality: Good Contrast: Requested by: Olga Lidia Vinson BP: 152 mmHg/94 mmHg Heart Rate: Rhythm: Indication: Staph bacteremia/R/O valvular vegetations Procedure Staff Cytopathologist: Jessie Chen RDCS Reading Physician: Tristan Reynoso MD Requesting Provider: Conclusions: 1)Normal LV size and systolic function with a LVEF of 62% and normal wall motions. 2)Mild concentric LVH with mild diastolic dsyfunction noted. 3)Mild left atrial enlargement noted. 4)Trivial TR with estimated normal PA pressures. 5)Mildly enlarged ascending thoracic aorta (3.9cm). Measurements: Chambers Valvular Assessment AV/MV Valvular Assessment TV/PV Normal Normal Normal Name Value Range Name Value Range Name Value Range Ao Lauren (MM): 3.4 cm (2.2 cm-3.7 AV Vmax: 1.68 m/s (1 m/s-1.7 TR Vmax: 2.17 mm/s ( - ) cm) m/s) TR PGmax: 19 mmHg ( - ) IVSd (2D): 1.2 cm (0.6 cm-1.1 AV meanP mmHg ( - ) syst. PAP: 24 mmHg ( - ) cm) MV E Vmax: 0.48 m/s ( - ) LVDd (2D): 4.6 cm (4.2 cm-5.9 MV A Vmax: 0.82 m/s ( - ) cm) MV E/A: 0.59 ( - ) LVDs (2D): 3.2 cm (2.1 cm-4 cm) LVPWd (2D): 1.0 cm (0.6 cm-1 cm) LVEF (MOD4): 62 % (>=55 %) Continued Measurements: Chambers Valvular Assessment AV/MV Valvular Assessment TV/PV Name Value Name Value Name Value LADs: 3.3 cm MV E' Septal: 0.06 m/s CVP (est.): 5 mmHg LADs Lon.2 cm MV E/E' Septal: 8.50 LA Area: 19.1 cm2 MV E/E' Lateral: 5.00 Patient: CHICO WHARTON Study Date: 04/13/2018 Page 1 of 2 09:00 AM Additional Vessels Name Value Ao Ascendin.9 cm Findings: Left Ventricle: Normal size left ventricle. Mild concentric LV hypertrophy. Global hypercontractility of the left ventricle. EF is 62 %. No regional wall motion abnormality. Grade 1 diastolic dysfunction (abnormal relaxation). Right Ventricle: Normal size right ventricle. Left Atrium: The left atrium is mildly dilated. Right Atrium: The right atrium is normal in size. Mitral Valve: The mitral valve is normal in appearance and function. Aortic Valve: The aortic valve is normal in appearance and function. Tricuspid Valve: The tricuspid valve is normal in appearance and function. Trivial tricuspid valve regurgitation. RVSP is 24mmHG.. Pulmonic Valve: Pulmonary valve not well visualized. Aorta: Dilated ascending aorta measuring 3.9 cm. Pericardium: No pericardial effusion. (No Signature Object) Patient: CHICO WHARTON Study Date: 04/13/2018 Page 2 of 2 09:00 AM [id number]
--- NOTE | 2018-04-13 13:45 | HOSPPROG ---
Hospitalist Progress Note Assessment/Plan: Patient is a 63yo M who returns to the hospital upon recommendation for treatment of staphylococcus bacteremia. 2 days ago, he presented to the ED with severe abdominal pain, nausea, and malaise. He was found to have duodenitis/ duodenal ulcer. Because he had SIRS criteria, blood cultures were drawn in the ED. He came back to the hospital for further care. 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 Thickening associated with the 3rd-4th portions of the duodenum with surrounding inflammation suggestive of duodenal ulcer /inflammation/infection. Secondary inflammatory process possibly from pancreatitis of the uncinate process is felt to be less likely *HTN -bp 156/89 *plan: get an xray of right ankle, doubt this will yield any info, but he is very concerned. Subjective: Traun is very concerned that the infection is coming from his right ankle. Objective: Vital Signs Temp Pulse Resp BP Pulse Ox 37.2 C 72 16 156/89 H 97 04/13/18 11:16 04/13/18 11:16 04/13/18 11:16 04/13/18 11:16 04/13/18 11:16 Laboratory Results 04/13/18 05:06 04/13/18 05:06 04/12/18 04/13/18 04/14/18 05:59 05:59 05:59 Intake Total 650 Balance 650 - Physical Exam Constitutional: no apparent distress, appears nourished, not in pain Eyes: PERRL Ears, Nose, Mouth, Throat: hearing normal Cardiovascular: regular rate and rhythym, no murmur, rub, or gallop Respiratory: no respiratory distress Skin: warm Neurologic: AAOx3 Psychiatric: interacting appropriately ICD10 Worksheet Patient Problems: Problems Problem Status Onset Bacteremia Acute - ICD10 Problem Qualifiers (1) Bacteremia
--- NOTE | 2018-04-13 17:01 | ASMTCMCOM ---
CM Note CM Note Notes: Case Management Chart Review for Discharge Support: Patient is a 63 year old male who returned to the hospital upon recommendation for treatment of staphylococcus Currently bacteremia. He is currently receiving IV antibiotics and is pending cultures. CM spoke with RN, patient likely to discharge independent when appropriate. CM to follow. Current D/C Plan: Independent. Date Signed: 04/13/2018 05:00 PM Electronically Signed By:Nena Calle
[2018-04-13] MEDS: oxyCODONE IR 5 MG TAB PO PRN ×2 (19:56→22:22)
--- NOTE | 2018-04-13 20:32 | PDMN ---
Medical Necessity Medical necessity: M160 sepsis and other febrile illness: bacteremia 2/2 hominis, repeat blood cx X2, will req IV abx > 2 MN,
--- NOTE | 2018-04-13 21:08 | GCON ---
REFERRING PHYSICIAN: Olga Lidia Vinson DO REASON FOR CONSULTATION: Staph hominis bacteremia. HISTORY OF PRESENT ILLNESS: Patient is a 63-year-old male who was seen at [facility] o n 04/10/2018, secondary to abdominal pain. The patient underwent an abdominal CT while in the emerge ncy room, which revealed duodenal inflammation. The patient was admitted, and blood cultures were ta mehrdad empirically. He was discharged the following day, but his blood cultures quickly grew Staphyloco ccus hominis. He was invited back to the hospital yesterday evening where vancomycin was instituted. An echocardiogram was performed that revealed no vegetations. CT scans of the abdomen and pelvis t hat were done on 04/10/2018, were reviewed for other causes of bacteremia, and none were found. Curr ently, the patient is resting comfortably in his hospital bed. He notes ongoing epigastric abdominal pain that is worse with movement. He denies any fevers or chills. Denies any weight loss. He has been eating normally. PAST MEDICAL HISTORY: 1. Hypertension. 2. Tinnitus. 3. Arthritis. 4. History of Hoffman esophagus. 5. Hyperlipidemia. 6. Kidney stones. 7. Carpal tunnel syndrome. 8. Spondylolisthesis. 9. History of chronic infection of the right ankle. PAST SURGICAL HISTORY: 1. Status post inguinal hernia repair. 2. Status post right ankle repair. ANTIBIOTICS: Vancomycin. ALLERGIES: No known drug allergies. 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 Patient noel es any tobacco, alcohol, or drug use. FAMILY HISTORY: Reviewed but noncontributory. REVIEW OF SYSTEMS: Other than that detailed above in the history of present illness, a comprehensive 10-system review is negative. PHYSICAL EXAMINATION: VITAL SIGNS: Temperature maximum 37.2, temperature current 37.1, heart rate 7 7, respiratory rate is 14, blood pressure 130/78. GENERAL: The patient is a well-formed, overweight , older male in no acute distress. He is not toxic in appearance. He is alert and oriented x3. He is pleasant in demeanor. HEENT: Normocephalic for age. Atraumatic. No scleral icterus. No oral l esion or drainage from the nares. Eyes: Lids and conjunctivae within normal limits. Pupils are equ al and round bilaterally. NECK: Supple. No meningismus. LUNGS: Clear to auscultation bilaterally with good effort. HEART: Regular rate and rhythm. No murmur, rub, or gallop noted. No peripheral edema. ABDOMEN: Soft. Mildly distended. Tender epigastrically. No rebound. No masses. SKIN: Warm and dry to the touch. No rash or lesion noted. MUSCULOSKELETAL: No muscle belly tenderness is noted. No joint line effusion or arthritis seen. NEURO: Cranial nerves 2-12 seem to be intact. P eripheral sensation seems intact in extremities. LABORATORY DATA: The patient has a CBC dated 04/13/2018, shows white blood cell count of 10.6, hemog lobin 15.3, hematocrit 45.3, and a platelet count of 253. Differential is left-shifted with 77% segm ented neutrophils. Serum chemistries on 04/13/2018, are all within normal limits. Creatinine 0.9. Urinalysis dated 04/10/2018, is essentially negative. MICROBIOLOGIC DATA: Patient has blood cultures dated 04/10/2018: 2/2 sets are growing Staphylococcu s hominis. Repeat blood cultures on 04/12/2018, are no growth today. ASSESSMENT: Staphylococcus hominis bacteremia. Unclear source. No evidence of endocarditis lesions on 2D echocardiogram. Cardiac exam is normal. At this point, we will switch his antibiotic from va ncomycin to cefazolin and treat for a total of 2 weeks. We will keep an eye on the repeat blood cult ures of 04/12/2018, to ensure clearance. It could be that he has transient bacteremia from his small bowel, although this particular genus would be not one of the dominant ones in the bowel. PLAN: 1. Discontinue vancomycin. 2. Start cefazolin 2 g IV q.8 hours. 3. Anticipate a duration of 2 weeks for documented clearance. 4. Follow up on repeat blood cultures and clinical course. /[id number]/MODL
[2018-04-13] MEDS: MAGNESIUM HYDROXIDE 30 ML UDCUP PO PRN (22:24)
[2018-04-13] MEDS ORDERED: MELATONIN 3 MG TAB PO PRN (22:32)
[2018-04-13] MEDS: ceFAZolin 2 GM/DEXTROSE 100 ML IV SCH (22:46)
[2018-04-14] MEDS: ceFAZolin 2 GM/DEXTROSE 100 ML IV SCH ×3 (05:09→21:26)
[2018-04-14] MEDS: PANTOPRAZOLE SODIUM 40 MG TAB PO SCH ×2 (08:41→21:25)
[2018-04-14] MEDS: LISINOPRIL 20 MG TAB PO SCH ×3 (08:41→21:25)
[2018-04-14] MEDS: MULTIVITAMINS 1 EACH TAB PO SCH (08:42)
[2018-04-14] MEDS: SENNOSIDES/DOCUSATE SODIUM TAB PO SCH ×2 (08:42→21:25)
[2018-04-14] MEDS: POLYETHYLENE GLYCOL 3350 17 GM PKT PO PRN (08:42)
[2018-04-14] MEDS: MAGNESIUM HYDROXIDE 30 ML UDCUP PO PRN ×2 (08:48→15:23)
--- NOTE | 2018-04-14 15:47 | HOSPPROG ---
Hospitalist Progress Note Assessment/Plan: Patient is a 63yo M who returns to the hospital upon recommendation for treatment of staphylococcus bacteremia. 2 days ago, he presented to the ED with severe abdominal pain, nausea, and malaise. He was found to have duodenitis/ duodenal ulcer. Because he had SIRS criteria, blood cultures were drawn in the ED. He came back to the hospital for further care. *bacteremia 2/2 staph hominis -ID to weigh in -cefazolin -patient is very concerned because he has a hx of osteomyelitis of the r ankle and tarsal bones -has hardware in place -ankle x ray shows no signs of osteomyelitis -blood cx show no growth *Duodenitis w ulcer -CT abdomen w/ contrast- 1. Thickening associated with the 3rd-4th portions of the duodenum with surrounding inflammation suggestive of duodenal ulcer /inflammation/infection. Secondary inflammatory process possibly from pancreatitis of the uncinate process is felt to be less likely -had significant pain last night that required morphine -cont PPI BID -Maalox *HTN -bp 138/68 *plan: order a PICC, will be on Cefazolin 6 g / day continuous infusion x 2 weeks. Reviewed his care w Dr Rodriguez, will update CM about plan of care. Reviewed w Tarun the risks and benefits of a PICC line. Subjective: Tarun is feeling well today, had abdominal pain last night. Objective: Vital Signs Temp Pulse Resp BP Pulse Ox 36.8 C 71 16 138/68 H 89 L 04/14/18 15:16 04/14/18 15:16 04/14/18 15:16 04/14/18 15:16 04/14/18 15:16 Laboratory Results 04/13/18 05:06 04/13/18 05:06 04/13/18 04/14/18 04/15/18 05:59 05:59 05:59 Intake Total 650 1300 Balance 650 1300 - Physical Exam Constitutional: no apparent distress, appears nourished, not in pain Eyes: PERRL Ears, Nose, Mouth, Throat: hearing normal Cardiovascular: regular rate and rhythym Respiratory: no respiratory distress Gastrointestinal: soft, non-tender abdomen Skin: warm Musculoskeletal: full muscle strength Neurologic: AAOx3 Psychiatric: interacting appropriately ICD10 Worksheet Patient Problems: Problems Problem Status Onset Bacteremia Acute - ICD10 Problem Qualifiers (1) Bacteremia
[2018-04-14] MEDS ORDERED: ALTEPLASE 2 MG VIAL IVP PRN (15:56)
--- NOTE | 2018-04-14 16:30 | ASMTCMCOM ---
CM Note CM Note Notes: CM spoke to Dr. Rodriguez and RUPINDER Lyles. Pt will most likely d/c tomorrow. Pt is getting a picc line today. Referral made to [facility] and [facility]. [facility] is able to accept. [facility] will most likely be in tomorrow to speak w/ pt. CM to follow. Plan: [facility] w/ [facility] Date Signed: 04/14/2018 04:30 PM Electronically Signed By:MOHIT Mello
--- NOTE | 2018-04-14 18:34 | PCMIDPN ---
Assessment/Plan: Assessment/Plan: * Staph hominis bacteremia: Unclear etiology with recent finding of duodenitis on CT scan as potential etiology although Staph hominis not typical for enteric carina. Right ankle would be other consideration which patient notes periodically has inflammatory flare ups. Continue cefazolin based on susceptibility of Staphylococcus hominis isolate. Plan 2 weeks of therapy. Will obtain weekly CBC and CMP on antibiotic therapy. Will arrange for follow- up in our office post hospital discharge. 04/14/18 18:31 Subjective: Patient feels significantly improved today. Had back pain overnight but has not recurred. History related to right ankle reviewed with patient today. Objective: Vital Signs Temp Pulse Resp BP Pulse Ox 36.8 C 71 16 138/68 H 89 L 04/14/18 15:16 04/14/18 15:16 04/14/18 15:16 04/14/18 15:16 04/14/18 15:16 Laboratory Results 04/13/18 05:06 04/13/18 05:06 04/13/18 04/14/18 04/15/18 05:59 05:59 05:59 Intake Total 650 1300 300 Balance 650 1300 300 Cefazolin # 1, antibiotics # 2 Blood cultures 04/12/2018 no growth Transthoracic echocardiogram with normal valve function (pulmonic valve not well visualized) - Physical Exam General Appearance: alert, no apparent distress EENT: No scleral icterus, No conjunctival petechiae Respiratory: lungs clear, No respiratory distress Cardiac/Chest: regular rate, rhythm, No systolic murmur Extremities: non-tender, No inflammation Abdomen: non-tender, No distended Skin: No embolic lesions ICD10 Worksheet Patient Problems: Problems Problem Status Onset Bacteremia Acute
--- NOTE | 2018-04-14 18:37 | PDIAF ---
- Diagnosis Diagnosis: Staphylococcus hominis bacteremia Code Status: Do Not Resuscitate - Medication Management Long-Term Antibiotics: Cefazolin 6 g IV Q 24 hr by continuous infusion Lift Operator Antibiotic Stop Date: 04/25/18 Discharge Medications: electronically signed and located in the Home Medication List. PICC Care - Routine: Yes - Orders Services needed: Home [facility] Care Face to Face: I certify that this patient was under my care and that I had the required [id number] encounter meeting the encounter requirements on the discharge day. My findings support the fact that the patient is homebound as defined in Home Care Face to Face Continued: CMS Chapter 7 Medicare Benefits Manual 30.1.1 , The condition of the patient is such that there exists a normal inability to leave home and consequently, leaving home would require a considerable and taxing effort. - Labs/Radiology CBC w/diff Date: 04/17/18 (Weekly Q ) CMP Date: 04/17/18 (Weekly Q ) Call or Fax Lab and Imaging Results to: Dr. Calhoun, - Follow Up Care Current Providers and Referrals: Ashli Melgoza MD [Primary Care Provider] -
[2018-04-15] MEDS: ceFAZolin 2 GM/DEXTROSE 100 ML IV SCH ×2 (05:47→12:01)
[2018-04-15 08:05] VITALS: BP 126/74
[2018-04-15] MEDS: LISINOPRIL 20 MG TAB PO SCH (08:29)
[2018-04-15] MEDS: MULTIVITAMINS 1 EACH TAB PO SCH (08:31)
[2018-04-15] MEDS: PANTOPRAZOLE SODIUM 40 MG TAB PO SCH (08:31)
[2018-04-15] MEDS: SENNOSIDES/DOCUSATE SODIUM TAB PO SCH (08:32)
--- NOTE | 2018-04-15 08:39 | HOSPPROG ---
Hospitalist Progress Note Assessment/Plan: Patient is a 63yo M who returns to the hospital upon recommendation for treatment of staphylococcus bacteremia. 2 days ago, he presented to the ED with severe abdominal pain, nausea, and malaise. He was found to have duodenitis/ duodenal ulcer. Because he had SIRS criteria, blood cultures were drawn in the ED. He came back to the hospital for further care. *bacteremia 2/2 staph hominis -cefazolin -patient is very concerned because he has a hx of osteomyelitis of the r ankle and tarsal bones -has hardware in place -ankle x ray shows no signs of osteomyelitis -blood cx show no growth *Duodenitis w ulcer -CT abdomen w/ contrast- 1. Thickening associated with the 3rd-4th portions of the duodenum with surrounding inflammation suggestive of duodenal ulcer /inflammation/infection. Secondary inflammatory process possibly from pancreatitis of the uncinate process is felt to be less likely -had significant pain last night that required morphine -cont PPI BID -Maalox *HTN -bp 138/68 *plan: dc today, will be on Cefazolin 6 g / day continuous infusion x 2 weeks. Subjective: Tong has no complaints, concerned about driving for the next few weeks. Objective: Vital Signs Temp Pulse Resp BP Pulse Ox 36.3 C 72 16 126/74 H 93 04/15/18 08:00 04/15/18 08:00 04/15/18 08:00 04/15/18 08:00 04/15/18 08:00 Laboratory Results 04/13/18 05:06 04/13/18 05:06 04/14/18 04/15/18 04/16/18 05:59 05:59 05:59 Intake Total 1300 300 Balance 1300 300 - Physical Exam Constitutional: no apparent distress, appears nourished, not in pain Eyes: PERRL Ears, Nose, Mouth, Throat: hearing normal Respiratory: no respiratory distress Skin: warm Musculoskeletal: full muscle strength Neurologic: AAOx3 Psychiatric: interacting appropriately ICD10 Worksheet Patient Problems: Problems Problem Status Onset Bacteremia Acute - ICD10 Problem Qualifiers (1) Bacteremia
--- NOTE | 2018-04-15 09:44 | GDS ---
DISCHARGE DIAGNOSES: 1. Bacteremia secondary to Staphylococcus hominis. 2. Duodenitis with ulcer. 3. Hypertension. HISTORY OF PRESENT ILLNESS: Briefly, the patient is a 63-year-old male who returned to the hospital upon recommendation for treatment of Staphylococcus bacteremia. Prior to this, he was admitted with severe abdominal pain, nausea, and malaise. He was found to have duodenitis and duodenal ulcer. Bec ause he had SIRS criteria, blood cultures were drawn in the ER. On discharge it was not noted that yessi aviles had a 2nd positive blood culture. He was asked to return to the hospital, which he did. He was tr eated with cefazolin. It was unclear of the source of his bacteremia. He will further follow up wit Infectious Disease in the outpatient setting. HOSPITAL COURSE: 1. Bacteremia secondary to Staph hominis. Second set of blood culture showed no growth. 2. Duodenitis with an ulcer. He had a CT of the abdomen which showed thickening associated with the 3rd-4th portions of the duodenum with surrounding inflammation suggestive of duodenal ulcer. He is overall improved with this. 3. Hypertension. Blood pressure is stable. DISCHARGE CONDITION: Stable. VITAL SIGNS: Blood pressure is 126/74, heart rate 72, respiratory rat e 16, O2 sats on 1.5 L are 93%. Temperature is 36.3 Celsius. MEDICATIONS AT DISCHARGE: Please see the EMR. DISCHARGE INSTRUCTIONS: 1. 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 2. To follow up with Dr. Rodriguez. 3. If he develops fever, chills, worsening pain, to return to the ER. Copy requested to: Dr. King Dr. Calhoun /[id number]/[facility] [place]
--- NOTE | 2018-04-15 12:33 | ASMTDCNOTE ---
Case Management Discharge Discharge Order Complete? Answers: Yes Patient to Obtain Answers: Independently Medications Transportation Arranged Answers: Family/Friends EMTALA Complete Answers: No Case Management Transport Answers: No Form Complete Faxed Final Orders Answers: Yes Agency/Facility Transfer Answers: Yes Report Printed & Faxed to Receiving Agency Family Notified Answers: No Discharge Comments Notes: Pts case discussed w/ RUPINDER Vera and Darby Olguin NP. Pt is being discharged today. DC orders sent to [facility]. CM [facility]. Pt is adamant about needing to continue to work. [facility] will see pt tonight and tomorrow. 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 Labs will be drawn on along w/ picc line care. CM available for changes. Plan: [facility]/ [facility] Date Signed: 04/15/2018 12:32 PM Electronically Signed By:MOHIT Mello
--- NOTE | 2018-04-15 12:39 | ASMTLACE ---
LACE Length of stay for Answers: 3 days current admission Acuity / Level of Answers: Yes Care: Did the patient have an inpatient admission? Comorbidities - select Answers: Opioid dependence all that apply / Chronic pain Other Notes: HTN; HLD # of Emergency department Answers: 1-2 visits in the last 6 months Score: 12 Date Signed: 04/15/2018 12:39 PM Electronically Signed By:MOHIT Mello
--- NOTE | 2018-04-15 15:07 | ASDISCHSUM ---
Discharge Information Plan Status:Home with Home Health Medically Cleared to Leave:04/14/2018 Discharge Date:04/15/2018 01:01 PM D/C Disposition: ADT D/C Disposition:Home Health Service Projected Discharge Date:04/15/2018 11:00 AM Transportation at D/C: Discharge Delay Reason: Follow-Up Date:04/15/2018 11:00 AM Discharge Slot: Final Diagnosis: Placement Information Referral Type:Home Infusion Referral ID:[id number] Provider Name:[facility] Address 1[address]: City:[place] Selection Factors: State:[place] Referral Type:*Home Health Care Services Referral ID:[id number] Provider Name:[facility] Address [address] [address] 2: City:[place] Selection Factors: State:[place] Patient Contact Information Contact Name:PARVEZ Relationship:Daughter Address: Work Phone: City: [facility] Phone: State/Zip Code: Email: Financial Information Financial Class:HMO and PPO Plans Primary Plan Desc:[employer] Primary Plan Number:[id number] Secondary Plan Desc:[employer] Secondary Plan Number:[id number] Assessment Information [facility] CM Progress Note CM Note CM Note Notes: Case Management Chart Review for Discharge Support: Patient is a 63 year old male who returned to the hospital upon recommendation for treatment of staphylococcus Currently bacteremia. He is currently receiving IV antibiotics and is pending cultures. CM spoke with RN, patient likely to discharge independent when appropriate. CM to follow. Current D/C Plan: Independent. Date Signed: 04/13/2018 05:00 PM Electronically Signed By:Nena Calle LACE LACE Length of stay for Answers: 3 days current admission Acuity / Level of Answers: Yes Care: Did the patient have an inpatient admission? Comorbidities - select Answers: Opioid dependence all that apply / Chronic pain Other Notes: HTN; HLD # of Emergency department Answers: 1-2 visits in the last 6 months Score: 12 Date Signed: 04/15/2018 12:39 PM Electronically Signed By:MOHIT Mello [facility] CM Progress Note CM Note CM Note Notes: CM spoke to Dr. Rodriguez and RUPINDER Lyles. Pt will most likely d/c tomorrow. Pt is getting a picc line today. Referral made to [facility] and [facility]. [facility] CM to follow. Plan: [facility]/ [facility] Date Signed: 04/14/2018 04:30 PM Electronically Signed By:MOHIT Mello Case Management Discharge Plan Note Case Management Discharge Discharge Order Complete? Answers: Yes Patient to Obtain Answers: Independently Medications Transportation Arranged Answers: Family/Friends EMTALA Complete Answers: No Case Management Transport Answers: No Form Complete Faxed Final Orders Answers: Yes Agency/Facility Transfer Answers: Yes Report Printed & Faxed to Receiving Agency Family Notified Answers: No Discharge Comments Notes: Pts case discussed w/ RUPINDER Vera and Darby Olguin NP. Pt is being discharged today. DC orders sent to [facility]. CM notified [facility]. [facility] will delivery meds at 4PM. Pt is adamant about needing to continue to work. [facility] will see pt tonight and tomorrow. 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 Labs will be drawn on along w/ picc line care. CM available for changes. Plan: [facility]/ [facility] Date Signed: 04/15/2018 12:32 PM Electronically Signed By:MOHIT Mello Intervention Information
== END 2018-04-15 13:01 | disposition home health service (06) | DRG 872 ==
LOC: F3E 15:03 → OBSVTOIN 15:03
PROVIDERS: ADMIT Internal Medicine; ATTEND Internal Medicine
PROC: 02H633Z Insertion of Infusion Device into Right Atrium, Percutaneous Approach (ICD-10-PCS; principal; 2018-04-14)
DX: R78.81 Bacteremia (principal); B95.7 Other staphylococcus as the cause of diseases classified elsewhere; K29.80 Duodenitis without bleeding; K26.9 Duodenal ulcer, unspecified as acute or chronic, without hemorrhage or perforation; I10 Essential (primary) hypertension; E78.5 Hyperlipidemia, unspecified
CPT/HCPCS: C1751; J0690; J2270; J2405; J3370